=== PATIENT | female | born 1950 | race Caucasian/White ===

== ENCOUNTER 2016-05-30 06:59 | Inpatient (IN) | payer MEDICARE ==
[~2016-05-30] VITALS: Ht 172.7 cm; Wt 84.8 kg
[2016-05-30 08:33] LABS: ALBUMIN 3.4 g/dL (3.4-5.0); ALKALINE PHOSPHATASE 62 U/L (46-116); ALT (SGPT) 30 U/L (10-68); BILIRUBIN - TOTAL 0.44 mg/dL (0.2-1.3); CALC OSMOLALITY 287 mosm/kg (275-300); CARBON DIOXIDE 26.3 mmol/L (21.0-32.0); CHLORIDE - SERUM 106 mmol/L (98-107); CREATININE - SERUM 0.6 mg/dL (0.6-1.3); GLUCOSE 91 mg/dL (74-106); POTASSIUM - SERUM 3.4 mmol/L (3.5-5.1); PROTEIN - SERUM 6.4 g/dL (6.4-8.2); SODIUM 144 mmol/L (136-145); UREA NITROGEN 15 mg/dL (7-18); eGFR NON AFRICAN AMERICAN > 90 mL/min (90-120)
[2016-05-30 08:47] LABS: THYROID STIMULATING HORMONE 3.69 uIU/mL (0.36-3.74); VALPROIC ACID (DEPAKOTE) 54.6 ug/mL (50.0-100.0)
[2016-05-30 11:41] LABS: BASOPHILS 0.3 % (0.0-2.0); HEMATOCRIT 40.4 % (36.0-48.0); HEMOGLOBIN 13.3 g/dL (12-16); IMMATURE GRANULOCYTES 0.3 % (0-5); LYMPHOCYTES 30.8 % (15-50); MCH 30.9 pg (26.0-34.0); MCHC 32.9 g/dL (31.0-37.0); MCV 93.7 fL (80.0-100.0); MEAN PLATELET VOLUME 10.8 fL (7.4-10.4); MONOCYTES 8.1 % (2-11); NEUTROPHILS 58.5 % (40-80); PLATELET COUNT 228 10x3/uL (130-400); RBC 4.31 10x6/uL (4.00-5.40); RDW 13.8 % (11.5-14.5)
[2016-05-30 13:44] LABS: APPEARANCE CLEAR (CLEAR); BILIRUBIN NEGATIVE (NEGATIVE); COLOR YELLOW (YELLOW); GLUCOSE NEGATIVE (NEGATIVE); KETONE NEGATIVE (NEGATIVE); LEUKOCYTE ESTERASE NEGATIVE (NEGATIVE); NITRITE NEGATIVE (NEGATIVE); PROTEIN NEGATIVE (NEGATIVE); UROBILINOGEN NORMAL (NORMAL)
[2016-05-30 13:53] LABS: UDS - AMPHET NEGATIVE QUAL (NEGATIVE); UDS - BARB NEGATIVE QUAL (NEGATIVE); UDS - BENZO NEGATIVE QUAL (NEGATIVE); UDS - COCAINE NEGATIVE QUAL (NEGATIVE); UDS - METH NEGATIVE QUAL (NEGATIVE); UDS - OPIATE NEGATIVE QUAL (NEGATIVE); UDS - PCP NEGATIVE QUAL (NEGATIVE); UDS - THC NEGATIVE QUAL (NEGATIVE)
[2016-05-30 20:40] VITALS: BP 122/73
--- NOTE | 2016-05-30 22:01 | NUR ---
PATIENT CAME INTO ER AND TOLD ER NURSE THAT SHE WAS DEPRESSED AND HAD SUICIDAL IDEATION OF TAKING A FULL BOTTLE OF TYLENOL. PATIENT IS ORIENTED TO SELF, TIME, PLACE AND SITUATION. SHE NOW IS SAYING SHE WASN'T PLANNING ON KILLING HERSELF BUT DOES ADMIT TO HOPELESSNESS AND THINKING OTHERS WOULD BE BETTER OFF WITHOUT HER. PATIENT MADE A VERBAL CONTRACT WITH NURSE THAT SHE WOULD NOT HARM HERSELF. PATIENT IS HER OWN POA. SHE IS ABULATORY, CONTINENT AND FULL CODE.
[2016-05-30] MEDS ORDERED: DEPAKOTE500 MG PO (22:22)
[2016-05-30] MEDS ORDERED: SYNTHROID150 MCG PO (22:25)
[2016-05-30] MEDS ORDERED: TRILIPIX45 MG PO (22:27)
[2016-05-30] MEDS ORDERED: LEXAPRO10 MG PO (22:28)
[2016-05-30] MEDS ORDERED: VOLTAREN75 MG PO (22:28)
[2016-05-31 06:14] LABS: BASOPHILS 0.5 % (0.0-2.0); HEMOGLOBIN 14.1 g/dL (12-16); IMMATURE GRANULOCYTES 0.2 % (0-5); LYMPHOCYTES 35.3 % (15-50); MCH 30.7 pg (26.0-34.0); MCHC 32.8 g/dL (31.0-37.0); MCV 93.7 fL (80.0-100.0); PLATELET COUNT 252 10x3/uL (130-400); RBC 4.59 10x6/uL (4.00-5.40); RDW 13.7 % (11.5-14.5); WBC 6.7 10x3/uL (4.8-10.8)
[2016-05-31 06:30] LABS: HEMOGLOBIN A1C 5.4 % (4.8-6.0)
[2016-05-31 07:00] VITALS: BP 153/76
[2016-05-31 07:04] LABS: ALBUMIN 3.5 g/dL (3.4-5.0); ALKALINE PHOSPHATASE 68 U/L (46-116); ALT (SGPT) 29 U/L (10-68); BILIRUBIN - TOTAL 0.44 mg/dL (0.2-1.3); CALC OSMOLALITY 286 mosm/kg (275-300); CALCIUM 8.9 mg/dL (8.5-10.1); CARBON DIOXIDE 28.6 mmol/L (21.0-32.0); CHLORIDE - SERUM 107 mmol/L (98-107); CHOL - HDL RATIO 5.2 ratio (2.3-4.1); CHOLESTEROL, TOTAL 170 mg/dL (0-200); CREATININE - SERUM 0.7 mg/dL (0.6-1.3); GLUCOSE 87 mg/dL (74-106); HDL CHOLESTEROL 33 mg/dL (32-96); LDL CHOLESTEROL 107 mg/dL (0-100); LDL-HDL RATIO 3.2 ratio (1.5-3.5); POTASSIUM - SERUM 3.3 mmol/L (3.5-5.1); PROTEIN - SERUM 6.6 g/dL (6.4-8.2); SODIUM 145 mmol/L (136-145); THYROID STIMULATING HORMONE 3.41 uIU/mL (0.36-3.74); TRIGLYCERIDE 152 mg/dL (30-200); VALPROIC ACID (DEPAKOTE) 55.5 ug/mL (50.0-100.0); eGFR NON AFRICAN AMERICAN 88 mL/min (90-120)
[2016-05-31 07:05] LABS: UREA NITROGEN 11 mg/dL (7-18)
--- NOTE | 2016-05-31 16:25 | NUR ---
JUMPS UP OUT OF CHAIR AND YELLS ANGERLY AT VISITOR AT OPPOSITE END OF DAYROOM THAT SHE IS SLANDERING HER AND HAD BETTER STOP IT.THIS NURSE TALKED TO HER AND GOT HER TO SIT BACK DOWN IN HER CHAIR AND ASSURED HER SHE IS MISTAKEN THAT THE VISITOR WAS NOT TALKING ABOUT HER.SHE CONTINUES TO BE AGGITATED AND BREATHING HARD UNDER HER BREATH.THIS NURSE REQUESTED MARILIN REARDON MED NURSE TO GIVE PRN TO CALM HER AGGITATION.
--- NOTE | 2016-05-31 17:15 | NUR ---
IS MUCH CALMER BUT OBSERVED LAUGHING OUTLOUD IF LISTENING TO SOMEONE WHO WAS NOT THERE.DENIES HEARING VOICES.LAUGHING OUTLOUD INAPPROPRIATELY WAS OBSERVED TWICE TODAY BY THIS NURSE.
[2016-05-31 19:30] VITALS: BP 115/83
--- NOTE | 2016-05-31 19:42 | NUR ---
RECEIVED THIS AM SITTING ON SIDE OF HER BED.ORIENTED X 3.DENIES SUICIDE IDEATION NOW.PROMISES TO TELL NURSE OR SOMEONE IF SHE HAS THOUGHTS OF SUICIDE.AMBULATES WITH STEADY GAIT.WILL CONTINUE WITH PLAN OF CARE,MONITOR FOR CHANGES AND SAFETY.
--- NOTE | 2016-05-31 22:17 | NUR ---
B) PATIENT IS BIZARRE IN BEHAVIOR, SHE IS HYPER VERBAL AND SHE IS LAUGHING AND MOVING ALL AROUND THE UNIT, SHE IS INTRUSIVE IN OTHERS CONVERSATIONS. SHE AMBULATES INDEPENDENTLY. SHE IS ORIENTED X3. SHE DENIES DEPRESSION OR S.I. AT THIS TIME. I) PROVIDE PRESCRIBED MEDS. R) PATIENT IS COMPLIANT WITH MEDS AND SHE IS PLEASANT. P) CONTINUE PLAN OF CARE.
--- NOTE | 2016-06-01 03:40 | NUR ---
Patient talking to herself in her room, very loudly. She denied hallucinations. continue to monitor
[2016-06-01 08:30] LABS: APPEARANCE HAZY (CLEAR); BACTERIA FEW /hpf (NONE SEEN); BILIRUBIN NEGATIVE (NEGATIVE); COLOR YELLOW (YELLOW); EPITHELIAL CELLS 0-5 /hpf (0-5); GLUCOSE NEGATIVE (NEGATIVE); KETONE SMALL mg/dL (NEGATIVE); LEUKOCYTE ESTERASE TRACE (NEGATIVE); NITRITE NEGATIVE (NEGATIVE); PROTEIN NEGATIVE (NEGATIVE); RED CELLS - URINE OCC /hpf (0-5); SPECIFIC GRAVITY 1.015 (1.005-1.020); WHITE CELLS - URINE OCC /hpf (0-5)
[2016-06-01 08:37] LABS: MUCUS <1+ /lpf (NONE SEEN)
[2016-06-01 09:12] VITALS: BP 121/94
--- NOTE | 2016-06-01 14:29 | NUR ---
B.) Ambulatory indepently on unit, alert and oriented times 4, calm and cooperative with care. I.) Administer medications and monitor compliance. Monitor for any suicidial ideations, encourage verbalization of feeling, and encourage group participation. R.) Compliant with medications, patient is intrusive with others converstation and care of other patients, hyperverbal , inappropriate emotions of laughing out and giggling at most things said or done throughtout the day. Contracted for safety. Safety maintained. P.) Continue with plan of care
[2016-06-01 20:23] VITALS: BP 102/65
--- NOTE | 2016-06-01 20:32 | NUR ---
RECEIVEDIN BEDROOM. LAYING WITH EYES CLOSED. RESPONDS TO VOICE. ALERT AND ORIENTED X3. CALM AND COOPERATIVE WITH CARE AND ASSESSMENT. DENIES THOUGHTS OF SELF HARM. ENCOURAGE TO EXPRESS NEEDS. PM MEDS GIVEN ORDERED. RESTING EYES CLOSED AT THIS TIME. CONTINUE PLAN OF CARE
[2016-06-02 06:13] LABS: RAPID PLASMA REAGIN Non Reactive (Non Reactive)
[2016-06-02 08:13] VITALS: BP 116/55
[2016-06-02 08:19] LABS: FOLATE (FOLIC ACID) - SERUM 13.7 ng/mL (>3.0)
[2016-06-02 10:19] LABS: VITAMIN D 25 HYDROXY 20.1 ng/mL (30.0-100.0)
[2016-06-02 13:46] VITALS: Ht 172.7 cm; Wt 84.8 kg
--- NOTE | 2016-06-02 17:32 | NUR ---
ORIENTED TO PERSON, PLACE, AND TIME. PT CONTINUES TO LAUGH INAPPROPRIATELY. REDIRECTION NEEDED. MEDICATIONS ADMINISTERED ORDERED. DENIES SI, DEPRESSION. NO AGGRESSION NOTED. FALL PRECAUTIONS MAINTAINED. WILL CONTINUE TO MONITOR AND CONTINUE WITH PLAN OF CARE.
[2016-06-02 20:13] VITALS: BP 104/71
--- NOTE | 2016-06-02 23:55 | NUR ---
RECEIVED IN BEDROOM. LAYING IN BED WITH EYES OPEN. ALERT AND ORIENTED. IN GOOD SPIRITS. SAYS SHE HAD A GOOD DAY. CALM AND COOPERATIVE WITH CARE AND ASSESSMENT. DENIES THOUGHTS OF SELF HARM. PROVIDE ONE ON ONE TIME TO EXPRESS NEEDS. PM MEDS GIVEN ORDERED. RESTING EYES CLOSED AT THIS TIME. CONTINUE PLAN OF CARE
--- NOTE | 2016-06-03 08:11 | PN ---
PATIENT:AZUL EPPS MEDICAL RECORD: [id number] LOCATION:[facility] ADMISSION DATE: 05/30/16 PROGRESS NOTE DATE OF SERVICE: 06/02/2016 SUBJECTIVE: No new complaint. OBJECTIVE: The patient continues to show ideas of reference and inappropriate laughter. She has been passively cooperative. On exam, mood is slightly elevated. Affect is distant and peculiar. Content of thought is positive for moderate paranoid ideation. Sensorium shows no change. ASSESSMENT: No change in diagnosis. PLAN: 1. Continue Abilify 20 mg daily, as well as Depakote. 2. Continue other medications and supportive therapy. TRANSINT:[id number] Voice Confirmation ID: [id number] DOCUMENT ID: [id number] MARICARMEN MARIN III, MD at 0811 CC: [id number] DICTATION DATE: 06/02/16 1226 PROGRAM CHECKER: 06/02/16 1854 ADM IN [place] [id number] [place] [id number]
--- NOTE | 2016-06-03 08:11 | PSY ---
PATIENT NAME:AZUL EPPS MEDICAL RECORD: [id number] : 46 LOCATION:[facility] ADMISSION DATE: 05/30/16 ACCOUNT: [id number] PSYCHIATRIC EVALUATION DATE OF EVALUATION: 06/01/16 Initial Psychiatric Workup IDENTIFYING DATA: This is one of numerous psychiatric contacts and one of several lifetime psychiatric hospitalizations for this 66-year-old white female. HISTORY OF PRESENT ILLNESS: This patient came to the Emergency Room because she was severely depressed and at the time of presentation was making suicidal statements. She later stated that she would just not feeling acutely suicidal, but staff noted that she had disorganized speech and delusional ideation and a very peculiar affect and for this reason, she was admitted. The patient stated that she was diagnosed as having schizophrenia when she was 14 years old. She has been hospitalized for psychiatric reasons in the past. She currently is being seen by a psychiatrist in [facility]. The patient states that her in November of last year from complications of COPD. She says she has been living by herself since then and does not feel like doing much of anything. Evidently, she is somewhat isolated. Staff noted a very peculiar behavior following admission. The patient during visiting hours began yelling at visitors stating that they were talking about her. She exhibited inappropriate laughter, elevated mood and was hyperverbal at times. Because of obvious deterioration in mental status, the patient is admitted. PAST MEDICAL HISTORY: Significant for hypothyroidism, degenerative joint disease and hyperlipidemia. FAMILY HISTORY: Noncontributory. ALLERGIES: None listed. SOCIAL HISTORY: See above. The patient does not have substance abuse issues. MENTAL STATUS: On interview, the patient is casually dressed and somewhat poorly groomed. Mood is at the moment euthymic. Affect is distant and odd. As noted above, the patient has shown grossly inappropriate affect. Speech shows some loosening of associations. Content of thought is positive for recent delusional ideation of a paranoid nature and recent thoughts of . The patient is oriented to person, place, month, and year. Remote and intermediate recall seemed to be intact. Concentration is rather poor. DIAGNOSTIC IMPRESSION: AXIS I: Schizoaffective disorder -- depressed phase. AXIS II: No diagnosis. AXIS III: Hypothyroidism, hyperlipidemia, degenerative joint disease. AXIS IV: Moderate. AXIS V: 32. PLAN: 1. The patient is admitted for medication adjustment as indicated. 2. Daily supportive therapy. 3. Work with the patient and her primary care physician regarding aftercare. TRANSINT:[id number] Voice Confirmation ID: [id number] DOCUMENT ID: [id number] MARICARMEN MARIN III, MD at 0811 CC: [id number] DICTATION DATE: 06/01/16 1206 DOG DAY CARE ATTENDANT: 06/01/16 1425 ADM IN [place] [address] [place] [address]
[2016-06-03 08:36] VITALS: BP 152/76
--- NOTE | 2016-06-03 14:23 | NUR ---
B) Alert, pleasant mood, cooperative, compliant with meds, takes meds whole, no difficulty swallowing, oriented x 3, talkative with other patients. I) Administer medications as ordered and provide group therapy as directed, encouraging continued participation. R) No s/s adverse reaction to medications, actively participates in group therapy. P) Cont current plan of care including meds and group therapy.
[2016-06-03 19:30] VITALS: BP 104/57
--- NOTE | 2016-06-03 21:55 | PN ---
PATIENT:AZUL EPPS MEDICAL RECORD: [id number] LOCATION:[facility] ADMISSION DATE: 05/30/16 PROGRESS NOTE DATE OF SERVICE: 06/03/2016 SUBJECTIVE: No new complaint. OBJECTIVE: The patient continues to show inappropriate laughter and labile affect. She does require redirection. On exam, mood is slightly anxious. Affect is distant and peculiar. Speech is somewhat tangential. Content of thought is positive for paranoid ideation of a delusional nature. Sensorium shows no change. ASSESSMENT: No change in diagnosis. PLAN: 1. Discontinue Abilify. 2. Begin Zyprexa 5 mg b.i.d. 3. Continue other medications and supportive therapy. TRANSINT:[id number] Voice Confirmation ID: [id number] DOCUMENT ID: [id number] MARICARMEN MARIN III, MD at 2155 CC: [id number] DICTATION DATE: 06/03/16 1130 MEDICAL CENTER DIRECTOR: 06/03/16 1936 ADM IN [facility] [address] [place] [address]
--- NOTE | 2016-06-03 23:41 | NUR ---
B) Recieved patient in the day room, alert and oriented X 3, no S.I. this shift, calm and cooperative with staff, I) Administered perscribed medications, R) Medication compliant, contracts for safety, P) Continue plan of care, continue to monitor.
[2016-06-04 09:32] VITALS: BP 97/64
--- NOTE | 2016-06-04 11:47 | NUR ---
(B)RECEIVED PATIENT SITTING IN A CHAIR AT THE NURSE'S STATION. ORIENTED X3. RELATES REASON FOR HOSPITALIZATION IS DUE TO "DEPRESSION" HOWEVER PATIENT IS NOT FORTH RIGHT WITH THE SI. PATIENT DENIES CURRENT SI WHEN ASKED BY THE NURSE. SOCIAL WITH PEERS. (I)ADMINISTER MEDS AND MONITOR COMPLIANCE. OBTAIN VERBAL CONTRACT FOR NO SELF HARM. (R)MED COMPLIANT. CONTRACTS VERBALLY FOR NO SELF HARM. (P)CONTINUE POC AND MAINTAIN FALL PRECAUTIONS.
[2016-06-04 20:24] VITALS: BP 108/57
--- NOTE | 2016-06-05 02:30 | NUR ---
PATIENT IN DAYROOM RESTING. CALM AND COMPLIANT WITH MEDICATION. ORIENTED TO PERSON, PLACE, TIME AND SITUATIN. DENIES SUICIDAL IDEATION OR THOUGHTS OF SELF HARM. CONTINUE TO MONITOR, CONTINUE PLAN OF CARE
--- NOTE | 2016-06-05 08:10 | NUR ---
DR. BAUER CALLED BACK AND GAVE NEW ORDERS FOR PATIENTS TEMP AND, SORE THROAT AND COUGH. SEE MAR.
[2016-06-05 09:01] VITALS: BP 111/58
[2016-06-05 09:13] LABS: BASOPHILS 0 % (0.0-2.0); EOSINOPHILS 0.6 % (0-7); HEMATOCRIT 40.9 % (36.0-48.0); HEMOGLOBIN 12.9 g/dL (12-16); IMMATURE GRANULOCYTES 0.4 % (0-5); LYMPHOCYTES 6.9 % (15-50); MCH 30.5 pg (26.0-34.0); MCHC 31.5 g/dL (31.0-37.0); MCV 96.7 fL (80.0-100.0); MEAN PLATELET VOLUME 11.2 fL (7.4-10.4); MONOCYTES 7.2 % (2-11); NEUTROPHILS 84.9 % (40-80); RBC 4.23 10x6/uL (4.00-5.40); RDW 14.5 % (11.5-14.5); WBC 5.4 10x3/uL (4.8-10.8)
[2016-06-05 09:20] LABS: PLATELET COUNT 182 10x3/uL (130-400)
--- NOTE | 2016-06-05 09:27 | NUR ---
PATIENTS SISTER CALLED AND ASKED ABOUT MEDS BECAUSE SHE SAID WEDNESDAY SHE TALKED PATIENT AND SHE HEARD HER SLURRING WORDS, EXPLAINED TO HER THAT SHE IS ON DEPAKOTE AND ZYPREXA AND WHEN HER BODY GETS ADJUSTED TO IT THEN SHE WILL LEVEL.
--- NOTE | 2016-06-05 11:43 | NUR ---
B.) Alert and oriented times three, smiling and conversing with others. I.) Administer medication and monitor compliance. Encourage to verbalized feeling and monitor for any suicidal ideations. Encourage group participation . Monitor safety. R.) Compliant with medications. States she still feels " a little depressed." No suicidal ideations. Socializes with staff. Contracted for safety. P.) Contracted for safety.
[2016-06-05 21:50] VITALS: BP 104/52
--- NOTE | 2016-06-06 02:20 | NUR ---
B) Recieved patient in day room watching TV, alert and oriented X 3, calm and cooperative, no S.I. , I) Administered perscribed medications, monitored for safety, contracted for safety, R) Medication compliant, pleasant and friendly, P) Continue plan of care.
[2016-06-06 09:28] VITALS: BP 106/48
--- NOTE | 2016-06-06 11:57 | PN ---
PATIENT:AZUL EPPS MEDICAL RECORD: [id number] LOCATION:[facility] ADMISSION DATE: 05/30/16 PROGRESS NOTE DATE OF SERVICE: 06/05/2016 SUBJECTIVE: The patient's case was discussed with staff. She has no new complaint. OBJECTIVE: The patient is in good behavioral control with limited insight about her condition. She tolerates her medicines well. ASSESSMENT: No change in diagnoses. PLAN: Current medicines and therapies have been reviewed and will be maintained. Long-term prognosis is guarded. TRANSINT:[id number] Voice Confirmation ID: [id number] DOCUMENT ID: [id number] KALIE MANCERA MD at 1157 CC: [id number] DICTATION DATE: 06/05/16 1443 COVER MARKER: 06/05/16 1819 ADM IN [place] [id number] [place] [address]
--- NOTE | 2016-06-06 12:55 | NUR ---
Alert and oriented times four, states she is in a good mood today and is feeling hopeful. Administer medications and monitor compliance, monitor for any suicidial ideations and contract for safety. Maintaine safety. Complaint with medications. No suicidial ideations. Contracted for no self harm. Reports continued sore throat but is better than yesterday. Continue plan of care and monitoring.
[2016-06-06 19:30] VITALS: BP 116/80
--- NOTE | 2016-06-07 01:53 | NUR ---
B) Recieved sitting in a chair in the day room, alert and oriented X 3, calm and cooperative with staff, I) Administered perscribed medications, redirected as needed, contracted for safety, R) medications compliant, no S.I. this shift, P) Continue plan of care, continue to monitor for safety.
[2016-06-07 07:00] VITALS: BP 102/60
--- NOTE | 2016-06-07 15:01 | NUR ---
PT IS RECEIVED IN CHAIR SITTING IN FRONT OF NURSE STATION. PT DENIES PAIN. DENIES SI. CONTRACTS FOR SAFETY. NO HALLUCIANTIONS OR DELUSIONS ARE NOTED OR REPORTED. NO AGGRESSION NOTED. PT HAS BEEN COOPERATIVE WITH STAFF AND IS COMPLIANT WITH MED'S AND CARE. PT IS ALERT AND ORIENTED X3. SAFETY MEASURES ARE IMPLEMENTED. WILL CONTINUE WITH PLAN OF CARE. WILL CONTINUE TO MONITOR.
[2016-06-07 19:30] VITALS: BP 104/42
--- NOTE | 2016-06-07 20:48 | NUR ---
RECEIVED IN DAYROON. SITTING IN CHAIR WATCHING TV WITH PEERS AT HER SIDE. SOCIALIZING AT TIMES. IN GOOD SPIRITS. DENIES THOUGHT OF SELF HARM. CONTINUES TO SIT WATCHING TV WITH HER PEERS. CONTINUE PLAN OF CARE
[2016-06-08 08:08] VITALS: BP 119/61
--- NOTE | 2016-06-08 10:30 | PN ---
PATIENT:AZUL EPPS MEDICAL RECORD: [id number] LOCATION:[facility] ADMISSION DATE: 05/30/16 PROGRESS NOTE DATE OF SERVICE: 06/04/2016 SUBJECTIVE: The patient offers no new complaint. OBJECTIVE: Staff reports the patient continues to be irritable, especially in the afternoons. The patient is prone to provoking other patients and has to be redirected from this. She continues to show shallow and brittle affect. On exam, the patient's mood is for the most part euthymic. Affect is distant. Speech tends to be somewhat tangential. Flow of thought shows some loosening of association. Content of thought continues to show paranoid ideation. The patient is tolerating medications well. Sensorium shows no change. ASSESSMENT: No change in diagnosis. PLAN: 1. We will maintain current treatment regimen. 2. Continue with supportive therapy. TRANSINT:[id number] Voice Confirmation ID: [id number] DOCUMENT ID: [id number] MARICARMEN MARIN III, MD at 1030 CC: [id number] DICTATION DATE: 06/04/16 1212 SURVEY RODMAN: 06/04/16 1835 ADM IN [facility] [address] [place] [address]
[2016-06-08] MEDS ORDERED: FEXOFENADINE HC60 MG PO (11:36)
[2016-06-08] MEDS ORDERED: VITAMIN D5000 UNIT PO (11:37)
[2016-06-08] MEDS ORDERED: ZYPREXA5 MG PO (11:37)
--- NOTE | 2016-06-08 16:58 | PN ---
PATIENT:AZUL EPPS MEDICAL RECORD: [id number] LOCATION:[facility] ADMISSION DATE: 05/30/16 PROGRESS NOTE DATE OF SERVICE: 06/08/2016 SUBJECTIVE: No new complaint. OBJECTIVE: The patient has had a very good weekend. No further suicidal ideation. She is no longer intrusive. Affect is much more appropriate. On exam, mood is euthymic. Affect is bland. Speech is slow in production and rate, but otherwise fluent. Content of thought is negative for overt psychosis. No suicidality. Sensorium is unchanged. ASSESSMENT: No change in diagnosis. PLAN: 1. Reduce Zyprexa to 5 mg daily. 2. Anticipate discharge tomorrow if the patient continues to do well. TRANSINT:[id number] Voice Confirmation ID: [id number] DOCUMENT ID: [id number] MARICARMEN MARIN III, MD at 1658 CC: [id number] DICTATION DATE: 06/08/16 1149 PROJECT MANAGEMENT IT SPECIALIST: 06/08/16 1356 ADM IN [place] [id number] [place] [id number]
--- NOTE | 2016-06-08 16:58 | NUR ---
Alert and oriented times four, smiling and laughing this am. Calm and cooperative with care. Administer medications and monitor compliance. Monitor for any signs of depression and/ or suicidial ideations. Contract for safety. Compliant with medications. smiling and social with staff and peers, occasional laugh, states she feels hopeful. No suicidial ideations. Contracted for no self harm. Ambulates indepently, safety maintained. Continue plan of care. Received visit from her marine tower operator this pm.
[2016-06-08 20:00] VITALS: BP 96/55
--- NOTE | 2016-06-08 21:04 | NUR ---
RECEIVED IN DAYROOM. SITTING WITH PEERS AT HER SIDE SOCIALIZING AND WATCHING TV. IN GOOD SPIRITS. DENIES THOUGHT OF SELF HARM.ENCOURAGE TO EXPRESS NEEDS. CONTINUES TO SIT WITH HER PEERS SOCIALIZING AND WATCHING TV. CONTINUE PLAN OF CARE
--- NOTE | 2016-06-09 09:00 | NUR ---
Contacted patient PCP office, follow up appointment made for patient for 06/18/16 at 1500. Prescriptions called to [facility] pharmacy, spoke with pharmacist Addy.
[2016-06-09 09:04] VITALS: BP 101/69
--- NOTE | 2016-06-09 11:01 | NUR ---
Alert and oriented times four, smiling and states she is in a good mood." i'm happy and my depression is very low". Compiant with medications. Social with others. States she has a support system of lutheran members and friends, will be going to her psycologist " Dr. Handy within the next week." verbalized ways to express her feelings with others. No suicidial ideations. Contracted for no self harm. Educated on discharge today, states a good long time friend is coming to pick her up. Educated on grief support groups in the [place], printed contact information given. Continue with plan of care to discharge today.
--- NOTE | 2016-06-09 15:00 | NUR ---
Patient discharged with no incident, with friend. Discharge instructions given, verbalized understanding.
--- NOTE | 2016-06-11 10:26 | DS ---
PATIENT:AZUL EPPS :46 MEDICAL RECORD: [id number] DISCHARGE SUMMARY ADMISSION DATE: 05/30/16 DISCHARGE DATE: 06/09/16 DATE OF ADMISSION: 05/30/2016 DATE OF DISCHARGE: 06/09/2016 HISTORY OF PRESENT ILLNESS: This is one of numerous psychiatric contacts and hospitalizations for this 66-year-old white female. The patient had come to the Emergency Department because she was severely depressed. She was also showing delusional ideation and ideas of reference. She had a previous diagnosis of schizophrenia or schizoaffective disorder. The patient's had in November of last year. For further details, please see previously dictated history. COURSE IN THE HOSPITAL: The patient was seen in consultation by Dr. Nieto. Ongoing medical problems included hyperlipidemia, hypothyroidism and degenerative joint disease. At the time of admission, the patient had already been treated with Depakote on a routine basis by a psychiatrist in [place]. Because of her psychotic symptoms, it was elected to add Zyprexa dosage, was advanced to as high as 5 mg twice a day, but reduced to just 5 mg daily by the time of discharge. The patient showed a good resolution of her acute psychotic symptoms. She had exhibited intrusiveness and bizarre speech, but this improved greatly. From the standpoint of her depressive symptoms, she showed improvement as well. She was maintained on Lexapro 10 mg daily, Depakote was maintained at 500 mg t.i.d. She achieved a therapeutic blood level. Most recent reading was on May 31 and she had a level of 55.5. Aside from this, the patient was maintained on Peggy for allergic symptoms, vitamin D supplements, TriCor, Voltaren gel, Synthroid 150 mcg daily. The patient had a good resolution of symptoms and by the time of discharge, she was felt to be stable enough to return to the home environment. She will follow up with her psychiatrist in [place]. FINAL DIAGNOSES: AXIS I: Schizoaffective disorder -- improving. AXIS II: No diagnosis. AXIS III: Hypothyroidism, hyperlipidemia, degenerative joint disease. AXIS IV: Moderate. AXIS V: 50. PLAN: 1. The patient is discharged on current medications. 2. Diet and activities as tolerated. 3. Follow up with psychiatrist at [place] as well as her primary care physician. TRANSINT:[id number] Voice Confirmation ID: [id number] DOCUMENT ID: [id number] DISCHARGE SUMMARY REPORT [id number] AZUL EPPS III, MARICARMEN Mclaughlin MD at 1026 CC: [id number] DICTATION DATE: 06/09/16 1204 WHARF LABORER: 06/09/16 1224 DIS IN 06/09/16 [place] [id number] [place] [id number]
== END 2016-06-09 12:55 | disposition home or self-care (01) | DRG 885 ==
LOC: D.ER 06:59 → D.PSYCH 19:46
PROVIDERS: Family Medicine; ADMIT Psychiatry & Neurology Psychiatry
DX: F25.9 Schizoaffective disorder, unspecified (principal); R45.851 Suicidal ideations; F32.9 Major depressive disorder, single episode, unspecified; E03.9 Hypothyroidism, unspecified; E78.5 Hyperlipidemia, unspecified; M19.90 Unspecified osteoarthritis, unspecified site; E55.9 Vitamin D deficiency, unspecified; Z91.81 History of falling

== ENCOUNTER 2016-08-26 05:46 | Inpatient (IN) | payer MEDICARE ==
[~2016-08-26] VITALS: Ht 172.7 cm; Wt 75.9 kg
[~2016-08-26 05:46] MED LIST: DEPAKOTE500 MG PO; FEXOFENADINE HC60 MG PO; LEXAPRO10 MG PO; SYNTHROID150 MCG PO; TRILIPIX45 MG PO; VITAMIN D5000 UNIT PO; VOLTAREN75 MG PO; ZYPREXA5 MG PO
[2016-08-26 06:17] LABS: BASOPHILS 0.2 % (0-2); EOSINOPHILS 0.8 % (0-7); HEMATOCRIT 40.3 % (36.0-48.0); HEMOGLOBIN 13.2 g/dL (12-16); IMMATURE GRANULOCYTES 0.1 % (0-5); LYMPHOCYTES 27.9 % (15-50); MCH 31.1 pg (26.0-34.0); MCHC 32.8 g/dL (31.0-37.0); MCV 94.8 fL (80.0-100.0); MEAN PLATELET VOLUME 10.7 fL (7.4-10.4); MONOCYTES 13.4 % (2-11); NEUTROPHILS 57.6 % (40-80); RBC 4.25 10x6/uL (4.00-5.40); RDW 14.2 % (11.5-14.5); WBC 8.8 10x3/uL (4.8-10.8)
[2016-08-26 06:28] LABS: PLATELET COUNT 308 10x3/uL (130-400)
[2016-08-26 06:45] LABS: ALBUMIN 3.9 g/dL (3.4-5.0); ANION GAP 16.5 mmol/L (8-16); BILIRUBIN - TOTAL 0.45 mg/dL (0.2-1.3); CALCIUM 9.7 mg/dL (8.5-10.1); CARBON DIOXIDE 25.8 mmol/L (21.0-32.0); POTASSIUM - SERUM 3.3 mmol/L (3.5-5.1); PROTEIN - SERUM 7.2 g/dL (6.4-8.2)
[2016-08-26 07:46] LABS: APPEARANCE SLT CLOUDY (CLEAR); BILIRUBIN NEGATIVE (NEGATIVE); COLOR DK YELLOW (YELLOW); GLUCOSE NEGATIVE (NEGATIVE); KETONE MODERATE mg/dL (NEGATIVE); LEUKOCYTE ESTERASE TRACE (NEGATIVE); NITRITE NEGATIVE (NEGATIVE); PROTEIN NEGATIVE (NEGATIVE); SPECIFIC GRAVITY 1.025 (1.005-1.020)
[2016-08-26 07:48] LABS: BACTERIA MODERATE /hpf (NONE SEEN); EPITHELIAL CELLS 0-5 /hpf (0-5); HYALINE CAST 0-5 /lpf (NONE SEEN); MUCUS >1+ /lpf (NONE SEEN); WHITE CELLS - URINE 0-5 /hpf (0-5)
[2016-08-26 07:50] LABS: UDS - AMPHET NEGATIVE QUAL (NEGATIVE); UDS - BARB NEGATIVE QUAL (NEGATIVE); UDS - BENZO NEGATIVE QUAL (NEGATIVE); UDS - COCAINE NEGATIVE QUAL (NEGATIVE); UDS - METH NEGATIVE QUAL (NEGATIVE); UDS - OPIATE NEGATIVE QUAL (NEGATIVE); UDS - PCP NEGATIVE QUAL (NEGATIVE); UDS - THC NEGATIVE QUAL (NEGATIVE)
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
[2016-08-26 11:33] VITALS: BP 109/52
[2016-08-26] MEDS ORDERED: VITAMIN D5000 UNIT PO (14:05)
[2016-08-26] MEDS ORDERED: VOLTAREN75 MG PO (14:07)
[2016-08-26] MEDS ORDERED: DEPAKOTE500 MG PO (14:09)
[2016-08-26] MEDS ORDERED: TRICOR48 MG PO (14:10)
[2016-08-26] MEDS ORDERED: LEXAPRO10 MG PO (14:10)
[2016-08-26] MEDS ORDERED: FEXOFENADINE HC60 MG PO (14:11)
[2016-08-26] MEDS ORDERED: SYNTHROID150 MCG PO (14:11)
[2016-08-26] MEDS ORDERED: ZYPREXA5 MG PO (14:12)
[2016-08-26 15:13] LABS: CHOLESTEROL, TOTAL 124 mg/dL (0-200); HDL CHOLESTEROL 42 mg/dL (32-96); LDL CHOLESTEROL 67 mg/dL (0-100); LDL-HDL RATIO 1.6 ratio (1.5-3.5); TRIGLYCERIDE 77 mg/dL (30-200)
[2016-08-26 15:16] LABS: VALPROIC ACID (DEPAKOTE) < 50.0 ug/mL (50.0-100.0)
[2016-08-26 15:31] LABS: HEMOGLOBIN A1C 5.8 % (4.8-6.0)
[2016-08-26 20:00] VITALS: BP 125/68
--- NOTE | 2016-08-27 01:03 | NUR ---
B) Recieved patient in the day room, alert and oriented x3, calm and cooperative with care, I) Administered perscribed medications, monitored for safety, R) Medication compliant, resting quietly now, P) Continue plan of care.
[2016-08-27 06:18] LABS: BASOPHILS 0.3 % (0-2); EOSINOPHILS 3.4 % (0-7); HEMATOCRIT 40.5 % (36.0-48.0); HEMOGLOBIN 13.3 g/dL (12-16); IMMATURE GRANULOCYTES 0.2 % (0-5); LYMPHOCYTES 43.8 % (15-50); MCH 30.8 pg (26.0-34.0); MCHC 32.8 g/dL (31.0-37.0); MCV 93.8 fL (80.0-100.0); MONOCYTES 8.1 % (2-11); NEUTROPHILS 44.2 % (40-80); PLATELET COUNT 292 10x3/uL (130-400); RBC 4.32 10x6/uL (4.00-5.40); RDW 14.1 % (11.5-14.5)
[2016-08-27 06:22] LABS: WBC 6.5 10x3/uL (4.8-10.8)
[2016-08-27 06:29] LABS: HEMOGLOBIN A1C 5.9 % (4.8-6.0)
[2016-08-27 06:59] LABS: ALBUMIN 3.1 g/dL (3.4-5.0); ANION GAP 11.3 mmol/L (8-16); BILIRUBIN - TOTAL 0.45 mg/dL (0.2-1.3); CALCIUM 9.3 mg/dL (8.5-10.1); CHOL - HDL RATIO 2.9 ratio (2.3-4.1); CREATININE - SERUM 0.9 mg/dL (0.6-1.3); LDL-HDL RATIO 1.5 ratio (1.5-3.5); POTASSIUM - SERUM 3.3 mmol/L (3.5-5.1); PROTEIN - SERUM 6.2 g/dL (6.4-8.2); THYROID STIMULATING HORMONE 1.58 uIU/mL (0.36-3.74)
[2016-08-27 08:30] VITALS: BP 126/74
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
[2016-08-27 10:52] VITALS: BMI 25.3
--- NOTE | 2016-08-27 12:30 | NUR ---
B) PATIENT IS ALERT AND ORIENTED X2, SHE IS TALKING AND INTERACTING WITH PATIENTS AND STAFF. AT ONE TIME POLITICS BECAME THE TOPIC TO DISCUSS AND SHE AND ANOTHER PATIENT BEGAN A HEATED ARGUMENT SO THE POLITICAL CONVERSATION WAS STOPPED. PATIENT AMBULATES INDEPENDENTLY. R) PROVIDE PRESCRIBED MEDS. P) CONTINUE PLAN OF CARE.
--- NOTE | 2016-08-27 21:30 | NUR ---
RECEIVED IN DINING ROOM. AWAKE AND ALERT, PLEASANT MOOD. CALM AND COOPERATIVE WITH CARE AND ASSESSMENT. ADMINISTER PRESCRIBED MEDS. VSS. COMPLIANT WITH MEDS. MONITOR FOR SAFETY AND CHANGES. CONTINUE POC
[2016-08-27 22:04] VITALS: BP 104/41
[2016-08-28 06:15] LABS: RAPID PLASMA REAGIN Non Reactive (Non Reactive)
[2016-08-28 07:27] LABS: FOLATE (FOLIC ACID) - SERUM 10.2 ng/mL (>3.0); VITAMIN D 25 HYDROXY 40.8 ng/mL (30.0-100.0)
[2016-08-28 09:48] VITALS: BP 142/94
[2016-08-28 10:49] LABS: APPEARANCE SLT CLOUDY (CLEAR); BILIRUBIN NEGATIVE (NEGATIVE); COLOR YELLOW (YELLOW); GLUCOSE NEGATIVE (NEGATIVE); KETONE NEGATIVE (NEGATIVE); LEUKOCYTE ESTERASE TRACE (NEGATIVE); NITRITE NEGATIVE (NEGATIVE); PROTEIN TRACE mg/dL (NEGATIVE); SPECIFIC GRAVITY 1.015 (1.005-1.020); UROBILINOGEN NORMAL (NORMAL)
[2016-08-28 11:00] LABS: BACTERIA FEW /hpf (NONE SEEN); EPITHELIAL CELLS 25-50 /hpf (0-5); RED CELLS - URINE 0-5 /hpf (0-5)
[2016-08-28 11:01] LABS: AMORPHOUS SEDIMENT <1+ /lpf (NONE SEEN)
[2016-08-28 14:14] VITALS: Ht 172.7 cm; Wt 75.9 kg
--- NOTE | 2016-08-28 17:13 | NUR ---
Alert and oriented to name, place, time and somewhat to situation. Ambulatory on unit, social with others. Laughs out loud throughout the day and auditory hallucination have been noted. Paitient is delusional and intrusive in others conversations and is hyperverbal. Redirect and set limitations, refocus to reality versus nonreality. Monitor safety. Attend to hallucinations when she is sitting quielty, hyper verbal when in group. Safety maintained. Urine sample obtained today. Continue with plan of care.
[2016-08-28 19:30] VITALS: BP 117/70
--- NOTE | 2016-08-29 02:27 | NUR ---
B) Recieved patient in the day room watching TV, alert and oriented X 3, calm and cooperative, no behaviors noted this shift, I) Administered perscribed medications, monitored for safety, R) Medication complaint, calm and cooperative with staff, P) Continue plan of care.
[2016-08-29 08:53] VITALS: BP 144/60
--- NOTE | 2016-08-29 11:01 | NUR ---
PATIENT LAUGHING INAPPROPRIATELY AND TALKING TO VOICES AND YELLING. OFFERED PATIENT A HALDOL AND PATIENT ALSO ASKED FOR AN ATIVAN. DID PROVIDE 2 MG HALDOL PO WITH 0.5 MG ATIVAN PO NOW.
--- NOTE | 2016-08-29 11:51 | PN ---
PATIENT:AZUL EPPS MEDICAL RECORD: [id number] LOCATION:[facility] ADMISSION DATE: 08/26/16 PROGRESS NOTE DATE OF SERVICE: 08/28/2016 SUBJECTIVE: The patient's case was discussed with staff. She has no new complaint. OBJECTIVE: The patient is in good behavioral control with limited insight about her condition. She does tolerate her medicines well. ASSESSMENT: No change in diagnoses. PLAN: Current medicines have been reviewed and will be maintained. Long-term prognosis is guarded. TRANSINT:[id number] Voice Confirmation ID: [id number] DOCUMENT ID: [id number] KALIE MANCERA MD at 1151 CC: [id number] DICTATION DATE: 08/28/16 172 POWDER PRESS OPERATOR: 08/28/16 2353 ADM IN [place] [id number] [place] [address]
--- NOTE | 2016-08-29 13:38 | NUR ---
B) PATIENT IS TALKATIVE, BUT SHE IS BEGINNING TO SLOW DOWN, SHE SAT AT THE TABLE AND WAS LOOKING AT THE PAPER AND LOOKING AT PICTURES, COMMENTING AND THEN SHE CLOSED HER EYES. I) PROVIDE PRESCRIBED MEDS. R) PATIENT IS COMPLIANT WITH MEDS AND UNIT MILIEU. P) CONTINUE POC.
--- NOTE | 2016-08-29 16:24 | NUR ---
PATIENT'S FRIEND HERE TO BRING HER CLOTHES SHE WANTED TO GET THE PATIENT'S KEYS TO GET HER CAR THE [employer] WANT IT MOVED. EXPLAINED TO THEM THAT I DO NOT HAVE THE AUTHORITY TO GET THE KEYS FROM THE [facility]. EXPLAINED THAT THE FIELD STAFF OR ASSISTANT AUTO CENTER MANAGER WILL BE THE ONES THAT CAN DIRECT THEM FURTHER ON WEDNESDAY.
[2016-08-29 19:30] VITALS: BP 140/78
--- NOTE | 2016-08-29 23:14 | NUR ---
RECEIVED IN DAYROOM SITTING ON SOFA. ALERT AND VERY TALKATIVE WITH PEERS. VSS. COOPERATIVE WITH CARE. ASSESSMEMNT COMPLETED PER FLOW SHEET. WILL CONTINUE PLAN OF CARE.
[2016-08-30 07:00] VITALS: BP 113/52
--- NOTE | 2016-08-30 15:05 | NUR ---
B) PATIENT IS LESS MANIC TODAY, SHE HAS NOT BEEN TALKING TO UNSEEN OTHERS TODAY, SHE HAS LAUGHED UNCONTROLLABLY AT DIFFERENT THINGS TODAY. PATIENT IS AMBULATORY AND SHE IS PLEASANT WITH STAFF AND PEERS. I) PROVIDE PRESCRIBED MEDS. R) PATIENT IS COMPLIANT WITH MEDS AND UNIT MILIEU. P) CONTINUE POC.
[2016-08-30 21:17] VITALS: BP 143/81
--- NOTE | 2016-08-31 03:55 | NUR ---
B) Recieved patient in the day room, alert and oriented, calm and cooperative, social with other patients, I) Administered perscribed medications, monitored for behaviors, R) medication compliant, awake int he middle of the night unable to sleep, attending to voices in her room, P) Continue plan of care.
[2016-08-31 07:58] VITALS: BP 128/60
--- NOTE | 2016-08-31 09:35 | NUR ---
SW LEFT VOICEMAIL WITH PT'S SISTER, RANDI MUNOZ, .
--- NOTE | 2016-08-31 13:07 | NUR ---
Patient in her room at start of shift can hear her yelling and arguing with unseen people, per intelligence clerk patient has done this for last 30 minutes. Later she comes out of her room with appropriate conversation with staff and peers. She does acknowledge that she is hearing voices and " they are hallucinations that I hear, I have very keen hearing and can't turn them off sometimes, I seem to not be able to ignore them." she states her reason for being her as " I have a mental illness, anxiety, anger problems and I hear things." Discussed with patient on refocusing to reality versus non reality. She had a good one on one with director school of nursing for group, but then when patient is not active with peers and staff, she sits and attends to unseen people, no outburst of anger noted, seem to slowly refocus at times. Safety maintained. Continue plan of care.
--- NOTE | 2016-08-31 14:05 | PN ---
PATIENT:AZUL EPPS MEDICAL RECORD: [id number] [facility] ADMISSION DATE: 08/26/16 PROGRESS NOTE DATE OF SERVICE: 08/29/2016 SUBJECTIVE: The patient's case was discussed with staff. She has no new complaints. OBJECTIVE: The patient is in good behavioral control with limited insight about her condition. She is tolerating her medicines well. ASSESSMENT: No change in diagnoses. PLAN: Brief supportive and educational interventions were made. Care Home prognosis is guarded. TRANSINT:[id number] Voice Confirmation ID: [id number] DOCUMENT ID: [id number] KALIE MANCERA MD at 1405 CC: [id number] DICTATION DATE: 08/29/16 1204 PAINTER HELPER: 08/29/16 1217 ADM IN [place] [id number] [place] [address]
--- NOTE | 2016-08-31 20:00 | NUR ---
RECEIVED IN DAYROOM. SITTING QUIETLY IN A CHAIR. CALM AND COOPERATIVE WITH CARE AND ASSESSMENTS. NO SIGNS OF HALLUCINATIONS AT THIS TIME. REDIRECT AND REORIENT NEEDED. ENCOURAGE TO EXPRESS NEEDS. CONTINUES TO SIT QUIETLY. CONTINUE PLAN OF CARE
[2016-08-31 20:13] VITALS: BP 105/60
[2016-09-01 07:43] VITALS: BP 92/70
--- NOTE | 2016-09-01 11:00 | NUR ---
Alert and oriented to name. Social with others and is hyperverbal. Redirect and refocus to reality versus nonreality. Monitor safety. Cooperative with care, laughs out loud at unseen things, continues to have intermittent auditory hallucinations. Manic and restless. Safety maintained. Continue plan of care.
--- NOTE | 2016-09-01 14:44 | PN ---
PATIENT:AZUL EPPS MEDICAL RECORD: [id number] LOCATION:[facility] ADMISSION DATE: 08/26/16 PROGRESS NOTE DATE OF SERVICE: 08/31/2016 Psychiatric Progress Note SUBJECTIVE: The patient's case was discussed with staff. She has no new complaint. OBJECTIVE: The patient is very disorganized and labile. She will be treated with higher dose of Zyprexa and will also have her Depakote level checked. Her long-term prognosis is guarded. TRANSINT:[id number] Voice Confirmation ID: [id number] DOCUMENT ID: [id number] KALIE MANCERA MD at 1444 CC: [id number] DICTATION DATE: 08/31/16 1456 INVENTORY CONTROL SPECIALIST: 08/31/162037 ADM IN [place] [id number] [place] [address]
[2016-09-01 19:30] VITALS: BP 140/78
--- NOTE | 2016-09-01 23:40 | NUR ---
RECEIVED IN HALLWAY. WALKING ABOUT. IN GOOD SPIRITS. CALM AND COOPERATIVE WITH CARE AND ASSESSMENTS. SOCIAL WITH STAFF AND PEERS AT TIMES. ENCOURAGE TO EXPRESS NEEDS. RESTING IN BED WITH EYES CLOSED AT THIS TIME. CONTINUE PLAN OF CARE
[2016-09-02 08:17] VITALS: BP 141/96
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
[2016-09-02 20:15] VITALS: BP 118/59
--- NOTE | 2016-09-03 00:58 | NUR ---
B) Recieved patient in her room, alert and oriented x 3, calm and cooperative, pleasant and friendly with staff, I) Administered perscribed medications, monitored for safey and falls, R) Medication compliant, still attending to voices, P) Continue plan of care.
--- NOTE | 2016-09-03 11:24 | NUR ---
SHERON ORTEGA A FRIEND OF THE PATIENTS HERE TO COVER INSPECTOR SET OF PATIENT'S KEYS. SHERON RECEIVED.
--- NOTE | 2016-09-03 13:29 | NUR ---
Nutrition Monitoring and Eval: Pt is eating 97% meal avg on a regular diet. +BM 09/02/16. Meds and labs noted. Pt remains at low nutritional risk. RD will continue to monitor pt progress per policy for duration of hospital stay.
--- NOTE | 2016-09-03 15:09 | NUR ---
B) PATIENT LAUGHS INAPPROPRIATELY, SHE IS ATTENDING TO HER UNSEEN OTHERS. SHE IS ABLE TO CARRY ON A CONVERSATION, SHE IS ORIENTED X3, BUT HAS A LOT OF DELUSIONAL THOUGHTS AND THINKING. PATIENT IS AMBULATORY AND SHE IS ABLE TO MAKE HER NEEDS KNOWN. I) PROVIDE PRESCRIBED MEDS. R) PATIENT IS COMPLIANT WITH MEDS. P) CONTINUE POC.
[2016-09-03 19:48] VITALS: BP 132/57
--- NOTE | 2016-09-04 02:34 | NUR ---
B) Recieved patienty in the day room, alert and oriented, attending to voices at times, pleasant and friendly, I) Administered perscribed medication, monitored for safety, R) Medication compliant, resting quietly now, P) Continue plan of care.
--- NOTE | 2016-09-04 13:45 | NUR ---
B) PATIENT IS AWAKE AND ALERT, SHE IS ORIENTED X3, BUT SHE IS ATTENDING TO HER VOICES, LAUGHING INAPPROPRIATELY. SHE IS AMBULATORY, SHE IS SELF CARE. I) PROVIDE PRESCRIBED MEDS. R) PATIENT IS COMPLIANT WITH MEDS AND UNIT MILIEU. P) CONTINUE POC.
[2016-09-04 15:09] VITALS: BP 109/63
[2016-09-04 19:00] VITALS: BP 130/54
--- NOTE | 2016-09-05 01:48 | NUR ---
PT HAVING DIFFICULTY GOING TO SLEEP DUE TO HER MANIC BEHAVIOR. PT IS YELLING OUT AND SCREAMING AT HER HALLUCINATIONS. ATTEMPTS AT REDIRECTED ARE UNSUCCESSFULL. MEDICATIONS GIVEN ORDERED. DENIES SI. WILL CONTINUE TO MONITOR AND CONTINUE WITH PLAN OF CARE.
[2016-09-05 10:42] VITALS: BP 112/65
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
--- NOTE | 2016-09-05 17:00 | NUR ---
T CALLED THIS NURSE TO SAY PATIENT IS MAKING HOMICIDAL STATEMENTS TO VISITORS, JAYCEE SANCHES SAID SHE SAID SHE WAS F--CKING CRAZY AND THAT SHE WAS GOING TO CHOKE THEM WITH HER BARE HANDS. BROUGHT PATIENT TO NURSES STATION. PATIENT IS SITTING IN THE HALLWAY.
--- NOTE | 2016-09-05 17:04 | NUR ---
PATIENT IS HALLUCINATING, BUT SHE DENIES SHE HEARS VOICES. PROVIDED HALDOL 2 MG PO NOW, PATIENT STILL DENIES ANY VOICES, PATIENT CONTINUES TO LAUGH OUT LOUD INAPPROPRIATELY.
--- NOTE | 2016-09-05 17:15 | NUR ---
SAT DOWN WITH PATIENT AND HAD A DISCUSSION WITH PATIENT. ASKED HER WAHT SHE SAID AND SHE SAID "THE TWO MEN VISITING ANOTHER PATIENT WERE LOOKING AT ME, LEERING, IN A LEWD MANNER, WHEN THE MEN WERE LEAVING I TOLD THEM I WAS F--ALESSIA CRAZY AND I WOULD CHOKE THEM WITH MY BARE HANDS" EXPLAINED TO PATIENT "THAT IS INAPPROPRIATE. EXPLAINED TO HER THAT IF SHE EVER FEELS UNCOMFORTABLE SHE NEEDS TO COME TALK TO STAFF AND STAFF CAN HANDLE THE SITUATION AND BE ABLE TO KEEP EVERYTHING UNDER CONTROL" EXPLAINED TO HER THAT IF SHE SAID THOSE THINGS ON THE OUTSIDE OF THIS UNIT SHE COULD BE ARRESTED. SHE SAID "I UNDERSTAND, I AM SORRY, I WILL GO TO STAFF NEXT TIME" AGAIN ASKED PATIENT IF SHE IS HEARING VOICES, SHE CONTINUES TO DENY, ALTHOUGH, SHE IS TALKING TO HERSELF. AT THIS TIME HER LAUGHTER HAS STOPPED. SHE IS SITTING IN THE HALLWAY AWAY FROM OTHERS BY THIS NURSE.
[2016-09-05 19:30] VITALS: BP 134/48
--- NOTE | 2016-09-05 22:10 | NUR ---
B) Patient was supportive of co-female peer crying. Later talked about "losing it" during visitation today by cussing at some visitors. States she is sorry and should not have used that kind of language. Claims she felt nervous from the way they were staring at her. Also made statements of being afraid of a select male peer on the unit, believing he might pose a threat to her. Noted to be talking to herself at times. Noted to have trace edema in ankles, encouraged to keep feet elevated when sitting. I) Administer medications as ordered, redirect PRN, offer 1:1 support and encourage to verbalize feelings, reorient PRN. R) Oriented to person and place, compliant with medications, paranoid statements made, delusional afraid of select persons on unit. P) Continue to monitor per plan of care.
[2016-09-06 07:00] VITALS: BP 105/60
[2016-09-06 19:30] VITALS: BP 121/68
--- NOTE | 2016-09-06 20:50 | NUR ---
PT IS RECEIVED WALKING IN GOMEZ NEAR NURSE STATION. PT DENIES SI. NO HALLUINATIONS OR DELUSIONS ARE NOTED. PT HAS LAUGHED OUT INAPPROPRIATLY AT TIMES. NO AGGRESSION NOTED. PT HAS BEEN COOPERATIVE WITH STAFF AND IS COMPLIANT WITH MEDS AND CARE. PT IS REDIRECTED AND REORIENTED NEEDED.S AFETY MEASURES ARE IMPLEMENTED. WILL CONTINUE TO MONTIOR AND CONTINUE WITH PLAN OF CARE.
--- NOTE | 2016-09-06 21:19 | NUR ---
RECEIVED IN DAYROOM. SITTING IN A CHAIR WITH PEERS AT HER SIDE. SOCIALIZING AT TIMES. LAUGHING FOR NO APPARENT REASON. CALM AND COOPERAITVE WITH CARE AND ASSESSMENTS. ENCOURAGE TO EXPRESS NEEDS. CONTINUES TO SIT WITH PEERS SOCIALIZING. CONTINUE PLAN OF CARE
[2016-09-07 10:13] VITALS: BP 150/58
--- NOTE | 2016-09-07 17:41 | NUR ---
Alert and oriented times three. Laughing out of control at things unseen and heard. Refocus to reaity versus nonreality. Monitor safety. Continues to have delusions and manic episodes. Patient wanted to meet with this nurse, she explains how mainc and delusional she was over the weekend stating," I will never do that again, I even got undressed in my room then went out in front of the male nurses in my undies, then laughs stating "if men can do it women should too." Redirected to appropriate behavior and refocusing to reality. Safety maintained. Continue plan of care.
[2016-09-07 19:30] VITALS: BP 106/55
--- NOTE | 2016-09-07 20:33 | NUR ---
RECEIVED IN DAYROOM. SITTING IN CHAIR MAKING DELUSIONAL STATEMENTS ABOUT STAFF. STATING THAT WE ARE GOING TO TAKE HER OUT INTO THE [place] AND CHOP HER UP AND TOOL STORAGE ATTENDANT HER BODY. HYPER VERBAL. REDIRECT AND REORIENT NEEDED. STATED THAT SHE WAS SORRY FOR WHAT SHE SAID. CONTINUES TO SIT IN CHAIR. CONTINUE PLAN OF CARE
--- NOTE | 2016-09-08 10:07 | NUR ---
Alert and oriented times three, calm and cooperative with assessment. Redirect and refocus to reality versus nonreaity. Monitor safety. Continues to have intermittent attending to auditory hallucinations, outburst of laughing and delusional thoughts. Safety maintained. Continue plan of care.
[2016-09-08 11:12] VITALS: BP 159/65
--- NOTE | 2016-09-08 20:20 | NUR ---
RECEIVED IN DAYROOM. SITTING ON SOFA. SOCIAL WITH STAFF AT TIMES. CALM AND COOPERATIVE WITH CARE AND ASSESSMENTS. NO SIGNS OF HALLUCINATIONS. NO DELUSIONAL STATEMENTS MADE. ENCOPURAGE TO EXPRESS NEEDS. CONTINUES TO SIT ON SOFA SOCIALIZING AT TIMES. CONTINUE PLAN OF CARE
[2016-09-09 11:34] VITALS: BP 128/77
--- NOTE | 2016-09-09 11:38 | NUR ---
B) Rec'd pt. in dining room for b'fast this a.m., alert, appetite good, feeds self, intrusive, often confabulates, manic. I) Admin meds as ordered, provide group therapy as directed. R) Med compliant, elvis well, actively participates in group. P) Cont plan of care including meds and group activity.
--- NOTE | 2016-09-09 19:00 | NUR ---
PT RECEIVED IN DDAY ROOM. WATCHING TV AND SPEAKING WITH PEERS. PT SHOWS SIGNS OF AUDITORY HALLUCINATIONS, AND HAS INAPPROPRIATE LAUGHTER. WILL ADMINISTER MEDICATIONS AND REORIENT NEEDED. VSS. WILL CONTINUE WITH PLAN OF CARE
[2016-09-09 19:30] VITALS: BP 102/34
[2016-09-10 08:00] VITALS: BP 145/89
--- NOTE | 2016-09-10 10:58 | NUR ---
B) PATIENT IS AWAKE AND ALERT TODAY, SHE IS LAUGHING INAPPROPRIATELY AT TIMES AND EVERYTHING IS FUNNY. SHE IS HYPERVERBAL, SHE DENIES HALLUCINATIONS TODAY, SHE DENIES S.I. PATIENT IS ORIENTED X3. I) PROVIDE PRESCRIBED MEDS. R) PATIENT IS COMPLIANT WITH MEDS. P) CONTINUE POC.
--- NOTE | 2016-09-10 14:30 | NUR ---
Nutrition Monitoring and Eval: Pt is eating 100% meal avg most meals on a regular diet. Meds and labs reviewed. +BM. Wt stable. Pt continues at low nutritional risk. RD will continue to monitor pt progress per policy.
--- NOTE | 2016-09-10 20:27 | NUR ---
B-SITTING QUIETLY IN DAYROOM. I-MEDS ADMINISTERED, MONITORING FOR FALLS AND SAFETY. R-COMPLIANT WITH MEDS. ABLE TO SWALLOW MEDS WITH WATER WITHOUT A PROBLEM. P- WILL CPOC
[2016-09-10 21:53] VITALS: BP 127/62
[2016-09-11 07:59] VITALS: BP 153/61
--- NOTE | 2016-09-11 13:33 | NUR ---
RECEIVES AMBULATORY THIS AM.IS ORIENTED X 3.DENIES HALLUCINATIONS.INTRUSIVE AT TIMES,COMPLIANT WITH STAFF AND MEDS.WILL CONTINUE WITH PLAN OF CARE,MONITOR FOR SAFETY AND CHANGES.
--- NOTE | 2016-09-11 18:19 | NUR ---
RECEIVED IN [facility]. SITTING AT TABLE WITH PEERS AT SUPPER TIME. SOCIALIZING WITH PEERS AT TIMES. CALM AND COOPERATIVE WITH CARE AND ASSESSMENTS. NO SIGNS OF HALLUCINATIONS. REDIRECT AND REORIENT NEEDED. RESTING WITH EYES CLOSED IN RECLINER AT THIS TIME. CONTINUE PLAN OF CARE
[2016-09-11 19:30] VITALS: BP 115/61
[2016-09-12 09:57] VITALS: BP 124/83
[2016-09-12 19:30] VITALS: BP 105/56
--- NOTE | 2016-09-13 01:18 | NUR ---
B) Recieved ambulating in the day room, alert and oriented, calm and cooperative, no outburst or behaviors noted this shift, I) Administered perscribed medications, monitored for safety, R) Medication compliant, pleasant and friendly, social with peers and staff, P) Continue plan of care.
[2016-09-13 07:00] VITALS: BP 103/49
--- NOTE | 2016-09-13 10:00 | NUR ---
AWAKE AND ALERT SITTING IN HALLWAY. LAUGHS INAPPROPRIATELY AND IS HYPERVERBAL AT TIMES. DENIES SI. NO AGGRESSION NOTED AT THIS TIME. ADMINISTER PRESCRIBED MEDICATIOMS.. CALM AND COOPERATIVE WITH ASSESSMENT. COMPLIANT WITH TAKING MEDS. WILL CONTINUE POC.
--- NOTE | 2016-09-13 20:12 | NUR ---
RECEIVED IN DAYROOM. SITTING AT TABLE WITH STAFF AND PEERS. SOCIALIZNG AT TIMES. NO GOOD SPIRITS. CALM AND COOPERATIVE WITH CARE AND ASSESSMENTS. NO SIGNS OF HALLUCINATIONS. ENCOURAGE TO EXPRESS NEEDS. CONTINUE PLAN OF CARE
[2016-09-13 21:39] VITALS: BP 118/86
[2016-09-14 07:00] VITALS: BP 105/63
--- NOTE | 2016-09-14 15:09 | NUR ---
ORIENTED X 3. PT DENIES HALLUCINATIONS. NO AGGRESSION NOTED. PT CONTINUES TO LAUGH INAPPROPRIATELY. SOME PARANOID DELUSIONS NOTED. REDIRECT WHEN NEEDED. MEDICATIONS GIVEN ORDERED. FALL PRECAUTIONS MAINTAINED. WILL CONTINUE TO MONITOR AND CONTINUE WITH PLAN OF CARE.
[2016-09-14 21:05] VITALS: BP 103/59
--- NOTE | 2016-09-14 23:21 | NUR ---
RECEIVED IN DAYROOM. SITTING WITH PEERS SOCAILIZING. CALM AND COOPERATIVE WITH CARE AND ASSESSMENTS. NO SIGNS OF HALLUCINATIONS. ENCOURAGE TO EXPRESS NEEDS. IN BEDROOM AT THIS TIME. TALKING TO SELF AT TIMES. TOLD THIS NURSE THAT SHE IS READY TO GO HOME. CONTINUE PLAN OF CARE
[2016-09-15 09:59] VITALS: BP 152/57
--- NOTE | 2016-09-15 11:00 | NUR ---
ALERT AND ORIENTED X3. SITTING IN RECLINER, LAUGHS INAPPROPRIATELY AND HYPERVERBAL AT TIMES. NO HALLUCINATIONS NOTED AND DENIES SI. AMBULATES INDEPENDENTLY. CALM AND COOPERATIVE WITH ASSESSMENT. MONITOR FOR SAFETY AND FALL PRECAUTIONS MAINTAINED. WILL CONTINUE PLAN OF CARE.
--- NOTE | 2016-09-15 21:25 | NUR ---
RECEIVED IN DAYROOM. SITTING IN A CHAIR OUTSIDE OF NURSES STATION. TALKING TO PEERS AT TIMES. CALM AND COOPERATIVE WITH CARE AND ASSSESSMENTS. NO SIGNS OF HALLUCINATIONS. RESTING IN BED EYES OPEN AT THIS TIME. CONTINUE PLAN OF CARE
--- NOTE | 2016-09-16 01:51 | NUR ---
Patient awakened c/o pain in R shoulder and requesting water. Water given but no PRN meds available, notified patient and stated she would "be okay".
[2016-09-16 08:30] VITALS: BP 113/69
[2016-09-16 09:00] VITALS: BP 113/69
--- NOTE | 2016-09-16 09:45 | NUR ---
B) PATIENT IS AWAKE AND ALERT, SHE IS NOT ATENDING TO HER VOICES AND SHE IS NOT LAUGHING INAPPROPRIATELY. SHE IS SPEAKING WELL WITH STAFF AND PEERS. SHE IS CALM AND REDIRECTS EASILY. PATIENT AMBULATES INDEPENDENTLY. I) PROVIDE PRESCRIBED MEDS. R) PATIENT IS COMPLIANT WITH MEDS AND UNIT MILIEU, SHE IS ALSO SAYING THAT SHE WANTS TO INVITE EVERYONE TO HER HOUSE AFTER SHE IS D/C'D FOR A [employer]. P) CONTINUE POC.
[2016-09-16 19:30] VITALS: BP 149/52
--- NOTE | 2016-09-17 00:21 | NUR ---
B) Recieved patient ambulating in the hallway, alert and oriented X3, wants to return to her home with assistance, I) Administered perscribed medications, monitored for safety, R) Medication compliant, social with peers and staff, P) Continue plan of care.
[2016-09-17 07:31] VITALS: BP 95/78
--- NOTE | 2016-09-17 10:13 | NUR ---
B) PATIENT IS AWAKE AND ALERT, SHE AMBUALTES INDEPENDENTLY, SHE IS NOT ATTENDING TO HER VOICES TODAY. SHE IS CALM, BUT SHE IS STAYING CLOSE TO STAFF AND WANTS TO TALK TO THEM A LOT THIS AM. SHE HAS NOT MADE ANY INAPPROPRIATE COMMENTS OR LAUGHING OUT. I) PROVIDE PRESCRIBED MEDS. R) PATIENT IS COMPLIANT WITH MEDS. P) CONTINUE POC.
[2016-09-17] MEDS ORDERED: TRICOR48 MG PO (13:53)
[2016-09-17] MEDS ORDERED: DEPAKOTE SPRIN125 MG PO (13:53)
[2016-09-17] MEDS ORDERED: ZYPREXA ZYDI5 MG/TAB PO (13:54)
--- NOTE | 2016-09-17 14:42 | NUR ---
Nutrition Monitoring and Eval: Pt is eating 100% meal avg on a regular diet. +BM 09/14/16. Meds and labs reviewed. Pt remains at low nutritional risk. Rec continue current diet. RD following.
--- NOTE | 2016-09-17 15:09 | NUR ---
PATIENT BEING D/C'D HOME. SHE IS PACKED AND READY TO GO. FAXED D/C ORDER AND MAR TO HER PSYCHIATRIST IN [place], MEDS FAXED TO JAMI AT THE [facility]. RECEIVED PATIENTS BELONGINGS FROM THE [facility] AND HER MEDICATIONS FROM THE PHARMACY.
--- NOTE | 2016-09-17 15:25 | NUR ---
DAVID CALLED FOR TRANSPORT HOME. DAVID HERE TO 3D TECHNOLOGIST PATIENT AND TAKE HER HOME, ALL BELONGINGS WITH PATIENT, PROVIDED PATIENT APPOINTMENTS WITH HER THERAPIST AND PSYCHIATRIST, PROVIDED MEDICATION LIST. PATIENT ASSISTED TO DAVID BY STAFF AND SHE IS NOW D/C'D OFF THE UNIT.
== END 2016-09-17 15:30 | disposition home or self-care (01) | DRG 885 ==
LOC: D.ER 05:46 → D.PSYCH 09:56
PROVIDERS: Family Medicine; ADMIT Psychiatry & Neurology Psychiatry
DX: F25.9 Schizoaffective disorder, unspecified (principal); F32.9 Major depressive disorder, single episode, unspecified; E78.5 Hyperlipidemia, unspecified; M19.90 Unspecified osteoarthritis, unspecified site; J30.9 Allergic rhinitis, unspecified; E03.9 Hypothyroidism, unspecified; E55.9 Vitamin D deficiency, unspecified

== ENCOUNTER → 2017-03-31 12:22 | Outpatient (CLI) | payer MEDICARE ==
[2016-08-28 14:14] VITALS: BMI 25.4
[~2017-03-31 12:22] MED LIST changes: +DEPAKOTE SPRIN125 MG PO; +TRICOR48 MG PO; +ZYPREXA ZYDI5 MG/TAB PO
== END | disposition home or self-care (01) ==
LOC: D.MRI 03-24 15:00
DX: R26.89 Other abnormalities of gait and mobility (principal)

== ENCOUNTER 2018-08-09 16:59 | Inpatient (IN) | payer MEDICARE ==
--- NOTE | 2018-08-09 17:00 | NUR ---
ADMITTED TO [facility] AMBULATORY WITH HER QUALITY CONTROL ASSOCIATE FROM HOME. SHE LIVES ALONE WITH HOME HEALTH. ADMITTED FOR DEPRESSION, SLEEPING A LOT, NOT EATING IN PAST COUPLE OF WEEKS. HX OF BIPOLAR. CODE STAUS=FULL CODE. CODEWORD= FERNANDO. PATIENT LIVES ALONE AND AMBULATES INDEPENDENTLY.
[2018-08-09] MEDS ORDERED: CELEBREX200 MG PO (17:08)
[2018-08-09] MEDS ORDERED: ZYPREXA10 MG PO (17:08)
[2018-08-09] MEDS ORDERED: LIPITOR20 MG PO (17:08)
[2018-08-09] MEDS ORDERED: DEPAKOTE ER500 MG PO (17:09)
[2018-08-09] MEDS ORDERED: LEXAPRO10 MG PO (17:10)
[2018-08-09 17:16] VITALS: BP 133/75; BMI 24.3
--- NOTE | 2018-08-09 21:35 | NUR ---
RECEIVED IN DAYROOM AREA. WALKING TO BEDROOM AREA. CALM AND COOPERATIVE WITH CARE AND ASSESSMENT. ENCOURAGE TO EXPRESS NEEDS. RESTING IN BED WITH EYES CLOSED. CONTINUE PLAN OF CARE
[2018-08-10 07:00] LABS: BASOPHILS 0.1 % (0-2); EOSINOPHILS 2.2 % (0-7); HEMATOCRIT 42.6 % (36.0-48.0); HEMOGLOBIN 14.2 g/dL (12-16); IMMATURE GRANULOCYTES 0.3 % (0-5); LYMPHOCYTES 44.5 % (15-50); MCH 31.3 pg (26.0-34.0); MCHC 33.3 g/dL (31.0-37.0); MCV 93.8 fL (80.0-100.0); MEAN PLATELET VOLUME 10.1 fL (7.4-10.4); NEUTROPHILS 43.9 % (40-80); PLATELET COUNT 248 10x3/uL (130-400); RBC 4.54 10x6/uL (4.00-5.40); RDW 13.5 % (11.5-14.5); WBC 7.8 10x3/uL (4.8-10.8)
[2018-08-10 07:39] LABS: ALBUMIN 3.5 g/dL (3.4-5.0); ALKALINE PHOSPHATASE 73 U/L (46-116); ALT (SGPT) 24 U/L (10-68); BILIRUBIN - TOTAL 0.61 mg/dL (0.2-1.3); CALC OSMOLALITY 291 mosm/kg (275-300); CALCIUM 9.1 mg/dL (8.5-10.1); CARBON DIOXIDE 33.3 mmol/L (21.0-32.0); CHLORIDE - SERUM 107 mmol/L (98-107); CHOL - HDL RATIO 3.7 ratio (2.3-4.1); CHOLESTEROL, TOTAL 179 mg/dL (0-200); CREATININE - SERUM 0.8 mg/dL (0.6-1.3); GLUCOSE 100 mg/dL (74-106); HDL CHOLESTEROL 49 mg/dL (32-96); LDL CHOLESTEROL 99 mg/dL (0-100); POTASSIUM - SERUM 4.2 mmol/L (3.5-5.1); PROTEIN - SERUM 6.9 g/dL (6.4-8.2); SODIUM 145 mmol/L (136-145); THYROID STIMULATING HORMONE 1.17 uIU/mL (0.36-3.74); TRIGLYCERIDE 158 mg/dL (30-200); UREA NITROGEN 20 mg/dL (7-18); VALPROIC ACID (DEPAKOTE) 35.7 ug/mL (50.0-100.0); eGFR NON AFRICAN AMERICAN 75 mL/min (90-120)
[2018-08-10 08:31] VITALS: BP 122/71
[2018-08-10 09:33] VITALS: BMI 24.3
[2018-08-10 12:09] VITALS: BMI 24.3
--- NOTE | 2018-08-10 19:49 | NUR ---
RECEIVED IN HALLWAY OUTSIDE OF NURSES STATION. SOCIALIZING WITH PEERS. CALM AND COOPERATIVE WITH CARE AND ASSESSMENT. REDIRECT AND REORIENT NEEDED. CONTINUES TO SIT IN GOMEZ AND SOCIALIZE WITH PEERS AT THIS TIME. CONTINUE PLAN OF CARE.
--- NOTE | 2018-08-11 10:00 | NUR ---
B) The patient is awake and alert, she is pleasant. She says she is depressed, she denies S.I. She ambulates independently. I) Provide prescribed meds. R) The patient is compliant with meds. P) Continue POC.
[2018-08-11 11:14] LABS: FOLATE (FOLIC ACID) - SERUM >20.0 ng/mL (>3.0)
[2018-08-11 12:39] VITALS: BP 123/64
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
[2018-08-11 23:17] VITALS: BP 126/69
--- NOTE | 2018-08-12 02:02 | NUR ---
B) Patient is alert and oriented to person, place and time, calm and cooperative, I) Administered scheduled medication as ordered, monitored for behaviors, R) mediations compliant, social and interactive with peers, P) Continue plan of care.
[2018-08-12 09:21] VITALS: BP 117/72
--- NOTE | 2018-08-12 09:25 | NUR ---
B) The patient is awake and alert, she is pleasant, denies any S.I., but says she is depressed. She ambulates independently. I) Provide prescribed meds. R) The patient is compliant with meds. P) Continue POC.
--- NOTE | 2018-08-12 14:15 | PN ---
PATIENT:AZUL EPPS MEDICAL RECORD: [id number] LOCATION:[facility] ADMISSION DATE: 08/09/18 PROGRESS NOTE DATE OF SERVICE: 08/11/2018 SUBJECTIVE: The patient's case was discussed with staff. She has no new complaint. OBJECTIVE: The patient has a depressed mood, but denies that she would seek to harm herself. She is eating and sleeping adequately. She tells me that the Lexapro has been tried in the past as an outpatient and did not work. She requests Effexor which she says worked well in the past. She is not sure why she no longer takes that medicine. In addition to this, she has pretty limited insight about her situation. She had a Depakote level that came back subtherapeutic. I am going to check another one before increasing the dose. She insists she has been taking her medicine at home, but that does contradict what has been reported to us by her caregiver. TRANSINT:[id number] Voice Confirmation ID: [id number] DOCUMENT ID: [id number] KALIE MANCERA MD at 1415 CC: [id number] DICTATION DATE: 08/11/18 1549 PLANT TECHNICIAN: 08/11/18 210 ADM IN [id number] [place] [address]
[2018-08-12 20:00] VITALS: BP 120/60
[2018-08-13 08:08] VITALS: BP 130/67
[2018-08-13 09:58] VITALS: BP 130/67
--- NOTE | 2018-08-13 10:36 | PN ---
PATIENT:AZUL EPPS MEDICAL RECORD: [id number] [facility] ADMISSION DATE: 08/09/18 PROGRESS NOTE DATE OF SERVICE: 08/12/2018 SUBJECTIVE: The patient's case was discussed with staff. She has no new complaint. OBJECTIVE: The patient is in good behavioral control. She has poor insight about her condition. She tolerates her medicines well. ASSESSMENT: No change in diagnoses. PLAN: Supportive and educational interventions were made. Long-term prognosis is guarded. TRANSINT:[id number] Voice Confirmation ID: [id number] DOCUMENT ID: [id number] KALIE MANCERA MD at 1036 CC: [id number] DICTATION DATE: 08/12/18 1556 SENIOR SHAREPOINT ARCHITECT: 08/12/18 2242 ADM IN [id number] [place] [address]
--- NOTE | 2018-08-13 11:38 | NUR ---
B) The patient is awake and alert. She is stating that she is better and less depressed. She is calm and pleasant. She interacts in activities. I) Provide prescribed meds. R) The patient is compliant with meds, she is eating well, and sleeps at night. P) Continue POC.
[2018-08-13 20:00] VITALS: BP 110/60
--- NOTE | 2018-08-14 00:30 | NUR ---
PATIENT HAS LOW ENERGY, FLAT AFFECT, STAYS TO HERSELF, COMPLIANT WITH MEDS, WILL FOLLOW POC
[2018-08-14 07:00] VITALS: BP 113/68
--- NOTE | 2018-08-14 09:40 | PN ---
PATIENT:AZUL EPPS MEDICAL RECORD: [id number] LOCATION:[facility] ADMISSION DATE: 08/09/18 PROGRESS NOTE DATE OF SERVICE: 08/13/2018 SUBJECTIVE: The patient's case was discussed with staff. She has no new complaint. OBJECTIVE: The patient is in good behavioral control with poor insight about her condition. She is tolerating her medicines well. ASSESSMENT: Major schizoaffective disorder, depressed phase. PLAN: Current medicines have been reviewed and will be maintained. I am going to increase the dose of the Effexor. I imagine she can be discharged from the hospital soon if this level of improvement continues. TRANSINT:[id number] Voice Confirmation ID: [id number] DOCUMENT ID: [id number] KALIE MANCERA MD at 0940 CC: [id number] DICTATION DATE: 08/13/18 1227 STRATEGY SPECIALIST: 08/13/18 1712 ADM IN [id number] [place] [address]
[2018-08-14] MEDS ORDERED: EFFEXOR37.5 MG PO (10:18)
--- NOTE | 2018-08-14 14:26 | NUR ---
PT IS ALERT AND ORIENTED. PT IS VERY PLEASANT WITH STAFF AND PEERS. CALM AND COOPERATIVE WITH ASSESSMENT. PT DENIES ANY SI AT THSI TIME. PT REPORTS SHE IS STILL DEPRESSED. MED COMPLIANT. FALL PRECAUTIONS IN PLACE. WILL CPOC.
[2018-08-14 20:08] VITALS: BP 104/49
--- NOTE | 2018-08-14 21:50 | NUR ---
RECEIVED IN DAYROOM. SITTING IN A CHAIR WITH STAFF AND PEERS BY HER SIDE. CALM AND COOPERATIVE WITH CARE AND ASSESSMENT. ENCOURAGE TO EXPRESS NEEDS. CONTINUES TO SIT QUIETLY IN DAYROOM. CONTINUE PLAN OF CARE
[2018-08-15 07:00] VITALS: BP 116/72
--- NOTE | 2018-08-15 11:10 | NUR ---
PT IS ALERT AND ORIENTED. CALM AND COOPERATIVE WITH ASSESSMENT. PT MOOD IS PLEASANT. PT. IS MED COMPLIANT. FALL PRECAUTIONS IN PLACE. WILL CPOC.
--- NOTE | 2018-08-15 11:13 | NUR ---
THIS NURSE SPOKE WITH ABIMAEL REGARDING DISCHARGE. ABIMAEL REPORTED HE WILL BE HERE TO [facility] BETWEEN 2 TO 3PM. FOLLOW UP APPT. WITH DR. DE SOUZA ON 08/25/18 AT 3PM. ALL MEDICATIONS FAXED TO PHARMACY. ALL DISCHARGE PAPERWORK FAXED TO PCP AND COPY SENT WITH PT.
--- NOTE | 2018-08-15 13:00 | NUR ---
PT DISCHARGED HOME WITH HELICOPTER PILOT. NO C/O PAIN OR DISCOMFORT VOICED OR NOTED. ALL DISCHARGED PAPERWORK REVIEWED WITH PT AND CAREGIVER. NO S/SX OF DISTRESS NOTED.
--- NOTE | 2018-08-15 13:33 | NUR ---
Nutrition follow up Regular diet with Ensure on all trays Pt reports eating as well as usual Pt is eating some meals in the cafeteria Pt plans to d/c tomorrow-Encouraged pt to continue Ensure Pt has no questions about nutrition RD following
--- NOTE | 2018-08-15 14:35 | PN ---
PATIENT:AZUL EPPS MEDICAL RECORD: [id number] LOCATION:[facility] ADMISSION DATE: 08/09/18 PROGRESS NOTE DATE OF SERVICE: 08/14/2018 SUBJECTIVE: The patient's case was discussed with staff. She has no new complaint. OBJECTIVE: The patient is disorganized with limited insight about her condition, but she is not having any suicidal thoughts. She is tolerating her current medicines well and I anticipate she can be transitioned out of the hospital tomorrow that is assuming this level of improvement is continued. ASSESSMENT: Schizoaffective disorder. PLAN: As above, the patient will be maintained on current medicines and discharged tomorrow. TRANSINT:[id number] Voice Confirmation ID: [id number] DOCUMENT ID: [id number] KALIE MANCERA MD at 1435 CC: [id number] DICTATION DATE: 08/14/18 1017 MUSHROOM GROWING SUPERVISOR: 08/14/18 1412 ADM IN [id number] [place] [id number]
--- NOTE | 2018-08-16 09:41 | PN ---
PATIENT:AZUL EPPS MEDICAL RECORD: [id number] LOCATION:[facility] ADMISSION DATE: 08/09/18 PROGRESS NOTE DATE OF SERVICE: 08/15/2018 SUBJECTIVE: The patient's case was discussed with staff. She has no new complaint. OBJECTIVE: The patient is in good behavioral control. She has a euthymic mood and is tolerating her medicines well. ASSESSMENT: Schizoaffective disorder. PLAN: The patient will be transitioned out of the hospital today. Followup will be with her outpatient psychiatrist. Her long-term prognosis is guarded. TRANSINT:[id number] Voice Confirmation ID: [id number] DOCUMENT ID: [id number] KALIE MANCERA MD at 0941 CC: [id number] DICTATION DATE: 08/15/18 1442 RESIDENT CARE MANAGER: 08/15/18 1454 DIS IN 08/15/[id number] [place] [address]
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
== END 2018-08-15 13:00 | disposition home or self-care (01) | DRG 885 ==
LOC: D.PSYCH 16:59
PROVIDERS: ADMIT Psychiatry & Neurology Psychiatry; ATTEND Psychiatry & Neurology Psychiatry
DX: F25.1 Schizoaffective disorder, depressive type (principal); E03.9 Hypothyroidism, unspecified; E78.5 Hyperlipidemia, unspecified; M19.90 Unspecified osteoarthritis, unspecified site; Z74.09 Other reduced mobility; E55.9 Vitamin D deficiency, unspecified